=== PATIENT | female | born 1990 | race Caucasian/White ===

== ENCOUNTER → 2016-06-17 | Outpatient (CLI) | payer OTHER ==
--- NOTE | 2016-06-17 12:54 | REP ---
LEFT KNEE, SIX VIEWS: HISTORY: Pain. There is no acute fracture or dislocation. The joint spaces are normal in appearance. Small calcifications are present adjacent to the medial femoral condyle. This represents ligamentous or tendon calcification. IMPRESSION: There is no acute fracture or dislocation. Signed by Meño Shell MD 06/17/2016 12:59 P
== END ==
LOC: M LRY 12:19
PROVIDERS: ATTEND Nurse Practitioner Family
DX: M25.562 Pain in left knee (principal)

== ENCOUNTER → 2017-04-23 | Outpatient (CLI) | payer OTHER | LOC: M LRY 18:27 | DX: S99.922A Unspecified injury of left foot, initial encounter (principal); X58.XXXA Exposure to other specified factors, initial encounter; Y93.9 Activity, unspecified | CPT/HCPCS: 73630 ==

== ENCOUNTER → 2018-02-09 | Outpatient (REF) | payer OTHER | LOC: M SFHCLERA 14:15 | PROVIDERS: ATTEND Nurse Practitioner Family | DX: J02.9 Acute pharyngitis, unspecified (principal) ==

== ENCOUNTER → 2018-04-19 | Outpatient (REF) | payer OTHER | LOC: M LAB REF 10:54 | PROVIDERS: ATTEND Physician Assistant | DX: J02.9 Acute pharyngitis, unspecified (principal) ==

== ENCOUNTER → 2018-06-16 | Outpatient (REF) | payer OTHER | LOC: M SFHCLERA 11:40 | PROVIDERS: ATTEND Nurse Practitioner Family | DX: J02.9 Acute pharyngitis, unspecified (principal) ==

== ENCOUNTER → 2018-08-30 | Outpatient (REF) | payer OTHER ==
[~2018-08-30] MED LIST: KEFL500C17 PO
== END ==
LOC: M SFHCLERA 09:51
PROVIDERS: ATTEND Nurse Practitioner Family
DX: R68.89 Other general symptoms and signs (principal)

== ENCOUNTER 2018-10-09 21:39 | Emergency (ER) | payer OTHER ==
[~2018-10-09] VITALS: Ht 162.6 cm; Wt 111.8 kg
[2018-10-09] MEDS ORDERED: KEFL500C17 PO (22:25)
[2018-10-09] MEDS ORDERED: CEPHALEXIN 500 MG CAP PO ONE (22:30)
[2018-10-09] MEDS ORDERED: predniSONE 20 MG TAB PO ONE (22:30)
[2018-10-09 22:40] VITALS: BP 150/79
--- NOTE | 2018-10-11 08:42 | REP ---
Clinical: Right foot pain Technique: AP, lateral, bilateral oblique views right foot . Findings: The osseous structures and joint spaces are intact and normal. 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 There is no evidence for acute fracture or dislocation. Surrounding soft tissues are unremarkable. No subcutaneous emphysema or radiodense foreign body. Impression: Age-appropriate right foot . No acute fracture or dislocation. Electronically Signed by Kael Ho MD 10/10/2018 01:00 A
== END 2018-10-09 22:39 | disposition home or self-care (01) ==
LOC: M ED 21:39
DX: L03.115 Cellulitis of right lower limb (principal); Z98.84 Bariatric surgery status